=== PATIENT | female | born 1975 | race Caucasian/White ===

== ENCOUNTER 2022-11-06 22:40 | Observation (INO) | payer SELFPAY ==
[~2022-11-06] VITALS: Ht 172.7 cm; Wt 96.4 kg
[2022-11-06 23:50] LABS: U Amphetamine Screen DETECTED; U Barbituate Screen Not Detected; U Benzodiazapine Screen Not Detected; U Buprenorphine Screen Not Detected; U Cannabinoids Screen Not Detected; U Cocaine Screen Not Detected; U Methadone Screen Not Detected; U Methamphetamine Screen Not Detected; U Opiates Screen Not Detected; U Oxycodone Screen DETECTED; U Phencyclidine Screen Not Detected; U Propoxyphene Screen Not Detected
[2022-11-06 23:54] LABS: BASOPHILS ABSOLUTE AUTO 0.03 K/mm3 (0.00-0.23); BASOPHILS PERCENT AUTO 0 % (0-2); EOSINOPHILS ABSOLUTE AUTO 0.07 K/mm3 (0.00-0.68); EOSINOPHILS PERCENT AUTO 1 % (0-6); Hematocrit 38.7 % (33.0-51.0); Hemoglobin 13.3 g/dL (11.5-16.0); IMMATURE GRAN ABSOLUTE AUTO 0.05 K/mm3 (0.00-0.10); IMMATURE GRAN PERCENT AUTO 0 % (0-1); LYMPHOCYTES ABSOLUTE AUTO 1.34 K/mm3 (0.84-5.20); LYMPHOCYTES PERCENT AUTO 11 % (21-46); MONOCYTES ABSOLUTE AUTO 0.73 K/mm3 (0.16-1.47); MONOCYTES PERCENT AUTO 6 % (4-13); Mean Corpuscular HGB 32.8 pg (26.0-34.0); Mean Corpuscular HGB Conc 34.4 g/dL (31.5-36.5); Mean Corpuscular Volume 96 fL (80-100); Mean Platelet Volume 8.9 fL (9.1-12.4); NEUTROPHILS ABSOLUTE AUTO 9.57 K/mm3 (1.96-9.15); NEUTROPHILS PERCENT AUTO 81 % (41-73); Platelet Count 236 K/mm3 (150-400); RDW Coefficient Variation 14.3 % (11.7-14.2); RDW Standard Deviation 50.8 fL (35.1-46.3); Red Blood Cell Count 4.05 M/mm3 (3.80-5.20); White Blood Cell Count 11.79 K/mm3 (4.00-11.30)
[2022-11-07 00:19] LABS: Albumin/Globulin Ratio 1.1 (0.8-1.8); Bilirubin, Total 0.4 mg/dL (0.1-1.0); Bun/Creatinine Ratio 12.9 (12.0-20.0); Calcium, Blood 8.4 mg/dL (8.5-10.1); Creatinine, Blood 0.62 mg/dL (0.40-1.00); Globulin, Blood 3.6 g/dL (2.2-4.0); Potassium, Blood 3.2 mmol/L (3.5-5.5); Total Protein, Blood 7.6 g/dL (6.4-8.2)
[2022-11-07] MEDS ORDERED: OXYC5 (00:41)
[2022-11-07] MEDS ORDERED: TIZA4 PO (00:41)
[2022-11-07 00:55] LABS: Magnesium, Blood 2.2 mg/dL (1.6-2.4)
[2022-11-07 02:33] VITALS: BP 140/98
[2022-11-07] MEDS ORDERED: Adipex-P37.5 M1 PO (03:17)
[2022-11-07] MEDS ORDERED: TOPI25 PO (03:18)
--- NOTE | 2022-11-07 05:57 | NUR ---
PT ARRIVED FROM ED WITH , PT HAS FELT NAUSEOUS MOST OF NIGHT WITH SOME EPOISIDE OF EMISIS AFTER ATTEMPTING TO DRINK OR TAKE ANYTHING PO. PT REQUESTING TO WAIT ON MORNIING MEDICATION. SPOKE WITH DR OLIVAS AND CONTINUE TO HOLD OFF ON PAIN MEDICATION AT THIS TIME.
[2022-11-07 06:24] LABS: Bun/Creatinine Ratio 9.5 (12.0-20.0); Calcium, Blood 8.7 mg/dL (8.5-10.1); Creatinine, Blood 0.63 mg/dL (0.40-1.00); Potassium, Blood 3.9 mmol/L (3.5-5.5)
[2022-11-07 07:50] VITALS: BP 139/90
[2022-11-07] MEDS ORDERED: LEVSOD25 PO (09:10)
[2022-11-07] MEDS ORDERED: ZYRTEC10 M2 PO (09:10)
[2022-11-07] MEDS ORDERED: ONDA4ODT MM (10:58)
--- NOTE | 2022-11-07 13:01 | NUR ---
PT DISCHARGED THE PT VERBALIZED UNDERSTANDING OF THE DC INSTRUCTIONS. THE PTS PRESCRIPTIONS WERE FAXED TO THE PHARMACY OF HER CHOICE. THE PT WAS TRANSFERED VIA WHEELCHAIR ACCOMPANIED BY THE SILK FOLDER AND HER .
== END 2022-11-07 12:23 | disposition home or self-care (01) ==
LOC: ER 22:40 → MEDS 22:41 → ENPENDDIS 11-07 11:37 → MEDS 11-07 12:23
PROVIDERS: Family Medicine; Student in an Organized Health Care Education/Training Program; ADMIT Internal Medicine
DX: F10.129 Alcohol abuse with intoxication, unspecified (principal); Y90.6 Blood alcohol level of 120-199 mg/100 ml; E87.6 Hypokalemia; E03.9 Hypothyroidism, unspecified; F17.200 Nicotine dependence, unspecified, uncomplicated; Z98.84 Bariatric surgery status; Z79.890 Hormone replacement therapy; Z79.899 Other long term (current) drug therapy
CPT/HCPCS: 36415; 80048; 80053; 83735; 84484; 85025; 93005; 93010; 96361; 96374; 96376; 99285; A9270; G0378; G0480; J2405; J3480; J7050